=== PATIENT | female | born 1990 | race Caucasian/White ===

== ENCOUNTER 2018-07-05 15:29 | Observation (INO) ==
[2018-07-05 16:48] LABS: Basophils % 0.1 %; Eosinophils # 0.1 K/mcL (0.0-0.6); Eosinophils % 0.6 %; Hematocrit 38.1 % (35.3-44.9); Immature Granulocytes % 0.4 % (0-4); Lymphocytes # 2.7 K/mcL (0.6-4.6); Lymphocytes % 20.2 %; Mean Corpuscular HGB Conc 34.1 g/dL (31.6-35.5); Mean Corpuscular Hemoglobin 30.2 pg (28.0-33.3); Mean Corpuscular Volume 88.6 fL (83.0-100.0); Mean Platelet Volume 10.8 fL (9.4-12.4); Monocytes # 1.1 K/mcL (0.0-1.3); Monocytes % 8.2 %; Neutrophils # 9.5 K/mcL (1.6-8.9); Platelet Count 217 K/mcL (140-400); Red Cell Distribution Width 13.8 % (11.5-14.5); Segmented Neutrophils % 70.5 %
[2018-07-05 16:50] LABS: Bilirubin,Urine Negative (Negative); Blood,Urine Negative (Negative); Clarity,Urine Clear (Clear); Color,Urine Yellow (Yellow); Glucose,Urine (UA) Normal (Normal); Ketones,Urine Negative (Negative); Leukocyte Esterase,Urine Trace (Negative); Nitrite,Urine Negative (Negative); Protein,Urine Negative (Neg-Trace); Specific Gravity,Urine 1.008 (1.010-1.025); Urobilinogen,Urine Normal (Normal)
[2018-07-05 16:53] LABS: Bacteria,Urine Few per hpf (None-Few); Hyaline Casts,Urine None Seen per lpf (None-Few); Squamous Epithelial Cell,Urine Many per lpf (None-Few)
[2018-07-05 16:56] LABS: Amphetamine Screen,Urine Negative ng/mL (Cutoff=1000); Barbiturate Screen,Urine Negative ng/mL (Cutoff=200); Benzodiazepines Screen,Urine Negative ng/mL (Cutoff=200); Cannabinoid Screen,Urine Negative ng/mL (Cutoff = 50); Cocaine Screen,Urine Negative ng/mL (Cutoff= 300); Creatinine,Urine 39 mg/dL; Opiate Screen,Urine Negative ng/mL (Cutoff=300); Phencyclidine Screen,Urine Negative ng/mL (Cutoff=25); Protein/Creatinine Ratio,Urine 0.18 mg/mg (0.00-0.20)
[2018-07-05 17:08] LABS: Alanine Aminotransferase 11 Units/L (7-52); Aspartate Amino Transferase 12 Units/L (13-39); BUN/Creatinine Ratio 15 (6-26); Blood Urea Nitrogen 8 mg/dL (6-20); Lactate Dehydrogenase 121 Units/L (140-271); Uric Acid 3.5 mg/dL (2.3-7.6); eGFR For Non-African Americans > 60 (> 60)
--- NOTE | 2018-07-10 15:05 | Event Note ---
Date of Encounter: 07/06/18 Time of Encounter: 01:00 Angie is a 28-year-old female who presented to labor and delivery with elevated blood pressures. Patient denied headache visual changes or epigastric pain. Patient states at home blood pressures were elevated. Labor and delivery blood pressures were monitored for number of hours her blood pressure stable. Creatinine be an ratio normal. Patient feeling well. Category 1 tracing. No contractions noted. Results given. Palpation stable. Patient started on 24 hour urine and was to follow-up in the office. Warning signs of preeclampsia were discussed. I did not see this patient personally. This was a phone discussion.
== END 2018-07-05 17:52 | disposition home or self-care (01) ==
LOC: 1NENULAB
PROVIDERS: ADMIT Obstetrics & Gynecology; ATTEND Obstetrics & Gynecology

== ENCOUNTER 2018-07-19 08:38 | Observation (INO) ==
--- NOTE | 2018-07-19 11:03 | OB/GYN Progress Note ---
Date of Encounter: 07/19/18 Time of Encounter: 11:00 - Assessment and Plan (1) 38 weeks gestation of Status: Acute Irregular contractions on monitor. Discharge home with labor precautions. (2) Decreased movement Status: Acute NST reactive, baseline 135. Discharge home with kick count education. Qualifiers: Fetus number: single or unspecified fetus Trimester: third trimester Qualified Code(s): O36.8130 - Decreased movements, third trimester, not applicable or unspecified Subjective - Subjective Principal diagnosis: Decreased movement Interval history: 28 y/o at 38w6d presented to triage with decreased movement that began around 7am. Denies LOF, VB, or contractions. Antepartum ROS: no loss of fluid, no vaginal bleeding, no contractions Objective - Vital Signs Vital Signs: Intake and Output 07/18/18 07/19/18 07/19/18 23:59 07:59 15:59 Other: Weight 136.4 kg Patient Weight 07/19/18 23:59 Weight 136.4 kg - Exam FHR: category 1 FHR comments: NST reactive, baseline 135bpm Auscultation: bilateral: normal Abdomen: Present: soft, gravid. Absent: tenderness
== END 2018-07-19 10:46 | disposition home or self-care (01) ==
LOC: 1NENULAB
PROVIDERS: ADMIT Registered Nurse; ATTEND Registered Nurse

== ENCOUNTER 2018-07-25 07:48 | Inpatient (IN) ==
[2018-07-25] MEDS ORDERED: Naloxone 0.4 MG/ML INJ IVP PRN (08:00)
[2018-07-25] MEDS ORDERED: *HR* Nalbuphine 10 MG/ML AMPUL IVP PRN (08:00)
[2018-07-25] MEDS ORDERED: Ondansetron 4 MG/2 ML VIAL IVP PRN (08:00)
[2018-07-25] MEDS ORDERED: Famotidine 20 MG/2 ML VIAL IVP PRN (08:00)
[2018-07-25] MEDS ORDERED: Ringers Solution, Lactated 1,000 ML IVC SCH (08:00)
[2018-07-25] MEDS ORDERED: Lidocaine 1% 20 ML MDV ID PRN (08:00)
[2018-07-25] MEDS ORDERED: Metoclopramide 10 MG/2 ML VIAL IVP PRN (08:00)
[2018-07-25] MEDS ORDERED: Oxytocin 20 units/ LR 1000 mL 20 UNIT/1,000 ML BAG IVC SCH (08:15)
[2018-07-25 08:26] LABS: Basophils % 0.1 %; Eosinophils # 0.1 K/mcL (0.0-0.6); Eosinophils % 0.6 %; Hematocrit 37.2 % (35.3-44.9); Hemoglobin 12.5 g/dL (11.5-15.4); Immature Granulocytes % 0.4 % (0-4); Lymphocytes # 2.3 K/mcL (0.6-4.6); Lymphocytes % 20.1 %; Mean Corpuscular HGB Conc 33.6 g/dL (31.6-35.5); Mean Corpuscular Hemoglobin 29.6 pg (28.0-33.3); Mean Corpuscular Volume 87.9 fL (83.0-100.0); Mean Platelet Volume 10.4 fL (9.4-12.4); Monocytes # 0.8 K/mcL (0.0-1.3); Monocytes % 6.9 %; Neutrophils # 8.2 K/mcL (1.6-8.9); Platelet Count 208 K/mcL (140-400); Red Blood Count 4.23 M/mcL (3.82-4.97); Red Cell Distribution Width 14.4 % (11.5-14.5); Segmented Neutrophils % 71.9 %
--- NOTE | 2018-07-25 08:53 | OB/GYN Progress Note ---
Date of Encounter: 07/25/18 Time of Encounter: 08:46 - Assessment and Plan (1) 39 weeks gestation of Current Visit: Yes Status: Acute Subjective - Subjective Principal diagnosis: induction of labor Antepartum ROS: movement normal (Bee induction started with 60 mL Bee) Objective - Vital Signs Vital Signs: Intake and Output 07/24/18 07/25/18 07/25/18 23:59 07:59 15:59 Other: Weight 2.523 kg Patient Weight 07/25/18 23:59 Weight 2.523 kg - Exam FHR: category 1 Abdomen: Present: normal appearance, soft, gravid Uterus: Present: normal Cervical dilation: 2 Cervix effacement: 50 station: -2 - Labs Labs: Abnormal lab results WBC 11.5 K/mcL (4.3-11.1) H 07/25/18 08:10
[2018-07-25 09:13] LABS: Amphetamine Screen,Urine Negative ng/mL (Cutoff=1000); Barbiturate Screen,Urine Negative ng/mL (Cutoff=200); Benzodiazepines Screen,Urine Negative ng/mL (Cutoff=200); Cannabinoid Screen,Urine Negative ng/mL (Cutoff = 50); Cocaine Screen,Urine Negative ng/mL (Cutoff= 300); Opiate Screen,Urine Negative ng/mL (Cutoff=300); Phencyclidine Screen,Urine Negative ng/mL (Cutoff=25)
--- NOTE | 2018-07-25 09:50 | OB/GYN History & Physical ---
Date of Encounter: 07/25/18 Time of Encounter: 08:10 Assessment and Plan (1) 39 weeks gestation of Current visit: Yes Status: Acute (2) Elective induction of labor planned Current visit: Yes Status: Acute History of Present Illness Chief complaint: induction HPI: Ms. Noble is a 28 year old female 1 who presents for induction of labor at 39 weeks and 2 days. Patient has a history of elevated blood pressures. They have been monitored throughout the . She has had multiple 24-hour urines drawn. She has allergies to penicillin. Current medications include vitamins. Socially she denies tobacco, alcohol, illicit drug use. She has no chronic medical conditions. Surgical history is negative. She has no history of abnormal Pap smears, STDs or pelvic infections. Socially she denies tobacco, alcohol, illicit drug use. Family history patient is adopted. Past Med Surg Social Fam HX - Past Medical History Medical history: migraine Additional medical history: pcos Psychiatric history: anxiety, depression - Past Surgical History Surgical History: no surgical history Additional surgical history: wisdom teeth removal - Social History Smoking Status: Never smoker Smokeless Tobacco Status: No Alcohol use: none Drug use: none - Family History Mother Adopted: Yes Living Status: Still Living Hx Family Cardiac Disorders: Yes (htn) Hx Family Respiratory Disorders: No Hx Family Cancer: Yes (thyroid cancer) Hx Family GI Disorders: No Hx Family Endocrine Disorder: No Hx Family Neuromuscular Disorders: No Hx Family Neurologic Disorders: No Hx Family HEENT Disorders: No Hx Family Autoimmune Disorders: No Obstetrical History - Pregnancies : 1 Medications and Allergies Vit Calc,Iron,Folic [ Vitamins] 1 tab PO DAILY 07/19/18 [ History] 3 Allergy/AdvReac Type Severity Reaction Status Date / Time Penicillins Allergy Rash Verified 07/19/18 08:55 Review of System OB All systems PM: reviewed and no additional remarkable complaints except as stated Exam - Constitutional Constitutional: well developed, well nourished, no acute distress, average body habitus - HEENT HEENT: PERRL - Neck Neck exam: full ROM - Lungs Respiratory exam: CTAB - Cardiovascular Cardiovascular exam: RRR - Abdomen Abdomen: Present: bowel sounds normal, gravid, non tender - Extremities Extremities exam: full ROM, normal capillary refill, warm - Vagina Vagina: Present: normal moisture - Cervix Dilation: 2 Effacement: 50 Station: -2 - Uterus Uterus exam: Present: normal size, normal contour Results Result Diagrams: 07/25/18 08:10 Abnormal lab results WBC 11.5 K/mcL (4.3-11.1) H 07/25/18 08:10 All other labs normal. - VTE Reasons for not Prescribing Prophylaxis: Treatment not Indicated - Low risk for VTE
[2018-07-25] MEDS ORDERED: *HR* FentaNYL (PF) 100 MCG/2 ML VIAL EP ONE (14:50)
[2018-07-25] MEDS ORDERED: Bupivacaine-MPF 0.25% 10 ML VIAL EP ONE (14:50)
[2018-07-25] MEDS ORDERED: Bupivacaine-MPF 0.25% 10 ML VIAL ONE ×3 (14:59→22:14)
[2018-07-25] MEDS ORDERED: *HR* FentaNYL (PF) 100 MCG/2 ML VIAL ONE ×2 (14:59→22:13)
[2018-07-25] MEDS ORDERED: Lidocaine -MPF 2% 5 ML VIAL ONE (14:59)
[2018-07-25] MEDS ORDERED: Epidural Premix (fent/bupiv) 110 ML EP SCH (15:00)
[2018-07-25] MEDS ORDERED: Lidocaine -MPF 1% 5 ML AMPUL ONE (16:07)
--- NOTE | 2018-07-25 16:12 | Anesthesia Evaluation PreOp ---
Date of Encounter: 07/25/18 Time of Encounter: 15:02 - Past History Planned Operation: labor epidural Cardiac History: HTN (diagnosed last two weeks of .) Pulmonary History: Denies Any Significant HX ATTRACTIONS ASSOCIATE History: Denies Any Significant HX, Other (anxiety/depression) Other Medical History: Other (morbid obesity BMI 45.) Anesthesia History: No Prior Anesthetic Complications (wisdom teeth extacted, no problems with sedation. Never had GA. Unsure of family history, was adopted.) : Yes Alcohol Use: none Drug use: none Medications and Allergies Vit Calc,Iron,Folic [ Vitamins] 1 tab PO DAILY 07/19/18 [ History] 3 Allergy/AdvReac Type Severity Reaction Status Date / Time Penicillins Allergy Rash Verified 07/19/18 08:55 - Meds/Allergy Pre-op Review Medications Reviewed: Yes Allergies Reviewed: Yes Beta Blockers on Current Med List: No Anesthesia Results - Labs 07/25/18 08:10 Anesthesia Exam 137/79, 92, 18. FHTs 140s. Height: 5'9" Weight: 304# NPO (# of Hours): >8 Pain Scale: 6 Pain Scale Used: Numeric (1 - 10) - HEENT Pupil (Motor): Pupils equal, EOMI Mallampati: III Teeth: Normal Oral Opening: Greater than 3 - ATTRACTIONS ASSOCIATE LOC: Oriented ATTRACTIONS ASSOCIATE Motor: Normal RUE, Normal LUE, Normal RLE, Normal LLE, Normal Face ATTRACTIONS ASSOCIATE Sensory: Normal: RUE, LUE, RLE, LLE, Face - Cardiac Rhythm: Regular - Pulmonary Breath Sounds: bilateral Clear, bilateral Rales, bilateral Rhonchi Respiratory Effort: Symmetrical Anesthesia Assess/Plan ASA Score: 3 Modified Nichole Scale for Level of Consciousness: Cooperative, oriented, and tranquil Anesthetic Plan: Regional Monitoring Plan: Standard Monitors
--- NOTE | 2018-07-25 16:20 | Anesthesia Procedures ---
Date of Encounter: 07/25/18 Time of Encounter: 15:10 Procedures: Anesthesia - Epidural/Spinal Patient ID/Chart reviewed: Yes Patient examined: Yes OB Eval: Gestational age: 39 OB Eval: : 1 OB Eval: Hx Para: 0 OB Eval: Dilated at (cm): 5 OB Eval: Contractions: Non-stressed pattern Consent Obtained: Yes Supplemental Oxygen: None/Room Air Site Prep: Aseptic Technique, Sterile prep and drape, Povidone-Iodine 1% Patient position: upright Local Anesthetic: Lidocaine 1% Amount of Local Anesthetic used: 6 Touhy Needle Gauge: 19 Touhy Needle Depth (cm): 8 Catheter Depth at Skin (cm): 20 Test Dose (1.5% Lido + Epi): Volume given (mls): 3 Test Dose Result: Negative Loading Dose: 0.25% Marcaine (mls): 8 Loading Dose: Fentanyl (mcg): 100 Loading Dose Administered: Thru Catheter Infusion Med: 0.125% Bupivacaine w/ 2 mcg/ml Fentanyl Infusion Rate (mls/hr): [address]: Tegaderm, Tape Interspace Used: L3-L4 Loss of Resistance (WESLY): Yes Blood: No CSF: No Paresthesia: No Procedure: Had some difficulty placing epidural, encountered bone at L2-3, L3-4, and L4-5. Was able to pass into epidural space with loss of resistence detected at L3-4. Proceeded with procedure, placed on pump at 16ml per hour. Patient only stated a shortening of contractions with intensity of pain the same. After 15 minutes and no improvement, gave patient the option of replacing the epidural. She agreed to do so. Called dr. garcia to the unit at 1605. At 1615 dr. garcia in room attempting placement. Vitals + FHT's: 3 Vital Signs Time 1510 1538 1540 1545 1550 BP 137/79 168/87 143/69 147/78 151/80 Pulse 92 82 79 80 82 FHTs 140 140 140 140 140
--- NOTE | 2018-07-26 06:24 | OB/GYN Procedure Note ---
Delivery - Delivery Date: 07/26/18 Provider: Quinton Spivey Intrapartum events: none Delivery induction: oxytocin, sloan Delivery augmentation: rupture of membranes, pitocin Delivery monitor: external FHT, external uterine, internal FHT, internal uterine Anesthesia: epidural Quantitated Blood Loss: 200 - Infant (s) A Infant Delivery Date: 07/26/18 Delivery Time: 06:02 Presentation: vertex Position: OA Route of delivery: Gender: Female Viability: Viable Pounds: 8 Ounces: 4 Weight Gram: 3.74 kg at 1 minute: 8 at 5 mins: 9 Shoulder Dystocia: not encountered Specimens collected: cord blood Placenta: spontaneous - Repair Episiotomy: none Laceration Description: Vaginal - Complications Delivery complications: none - Disposition Mom disposition: stable in LDR [place] disposition: stable in LDR - Comments Comments: Patient progressed to complete and pushing and had a spontaneous vaginal delivery of a female over an intact perineum. Infant was on the agents perineum easily. The rest of the was then delivered with 1 push. cried immediately upon delivery. Cord was clamped cut after 60 seconds. The was then passed to nursing in attendance. Cord blood was obtained. The placenta was then delivered spontaneously and intact. There are no cervical periurethral or perineal lacerations noted. There was a very small second-degree vaginal laceration which is repaired with 3-0 Vicryl suture in usual fashion. Patient delivered a female infant weight was 8 lbs. 4 oz. with Apgars 81 minute 9 at 5 minutes. Estimated blood loss 200 mL.
[2018-07-26] MEDS ORDERED: Measles/Mumps/Rubella Vacc 0.5 ML VIAL SQ PRN (09:04)
[2018-07-26] MEDS ORDERED: Oxytocin 20 units/ LR 1000 mL 20 UNIT/1,000 ML BAG IVC SCH (09:04)
[2018-07-26] MEDS ORDERED: Prenatal Vit/FA 1 EACH TABLET PO SCH (09:04)
[2018-07-26] MEDS ORDERED: Rho Immune Globulin 1,500 UNIT SYRINGE IM PRN (09:04)
[2018-07-26] MEDS ORDERED: Acetaminophen 325 MG TABLET PO PRN (09:04)
[2018-07-26] MEDS: Ibuprofen 600 MG TABLET PO PRN ×2 (09:56→18:45)
[2018-07-27] MEDS: Ibuprofen 600 MG TABLET PO PRN (04:25)
[2018-07-27 06:20] LABS: Basophils # 0.1 K/mcL (0.0-0.2); Basophils % 0.3 %; Eosinophils # 0.2 K/mcL (0.0-0.6); Eosinophils % 0.9 %; Hematocrit 34.9 % (35.3-44.9); Hemoglobin 11.6 g/dL (11.5-15.4); Immature Granulocytes % 0.5 % (0-4); Lymphocytes # 3.9 K/mcL (0.6-4.6); Lymphocytes % 19.9 %; Mean Corpuscular HGB Conc 33.2 g/dL (31.6-35.5); Mean Corpuscular Hemoglobin 29.7 pg (28.0-33.3); Mean Corpuscular Volume 89.5 fL (83.0-100.0); Mean Platelet Volume 10.7 fL (9.4-12.4); Monocytes # 1.5 K/mcL (0.0-1.3); Monocytes % 7.7 %; Neutrophils # 13.8 K/mcL (1.6-8.9); Platelet Count 187 K/mcL (140-400); Red Cell Distribution Width 14.6 % (11.5-14.5); Segmented Neutrophils % 70.7 %
[2018-07-27 08:07] VITALS: BP 104/66
--- NOTE | 2018-07-27 08:57 | Discharge Summary ---
Date of Encounter: 07/27/18 Time of Encounter: 09:04 - Discharge Diagnosis (1) Status post vaginal delivery Priority: Primary Status: Acute Comments: Patient eating and drinking well. Normal flatus, no BM yet. Pain well controlled with tylenol and ibuprofen. Patient is Rh negative and baby is Rh positive, RhoGAM given yesterday. Patient states her mood is good and feels ready for discharge. Breast-feeding well and has a breast pump at home. Bleeding is light and improving. Patient is stable for discharge. - Discharge Medications Prescriptions: Acetaminophen [Tylenol] 650 mg PO Q6HR PRN 7 Days #30 tablet PRN Reason: Mild Pain Ibuprofen [Motrin] 600 mg PO Q6HR PRN 7 Days #28 tablet PRN Reason: Pain Docusate [Colace] 100 mg PO BID 30 Days #60 capsule Home Medications: Vit Calc,Iron,Folic [ Vitamins] 1 tab PO DAILY 07/19/18 [ History] Acetaminophen [Tylenol] 650 mg PO Q6HR PRN 7 Days #30 tablet 07/27/18 [Rx] Docusate [Colace] 100 mg PO BID 30 Days #60 capsule 07/27/18 [Rx] Ibuprofen [Motrin] 600 mg PO Q6HR PRN 7 Days #28 tablet 07/27/18 [Rx] Measles/Mumps/Rubella Vacc [MMR II Vaccine with Diluent] 0.5 ml SQ AD PRN vial 07/27/18 [Rx] Vit/FA 1 each PO DAILY tablet 07/27/18 [Rx] Rho Immune Globulin [HyperRHO S/D] 1,500 unit IM AD PRN syringe 07/27/18 [Rx] Allergies/Adverse Reactions: 3 Allergy/AdvReac Type Severity Reaction Status Date / Time Penicillins Allergy Rash Verified 07/19/18 08:55 Data Procedures and tests throughout hospitalization: Laboratory Tests 07/25/18 07/25/18 07/26/18 08:10 08:45 06:55 WBC 11.5 H RBC 4.23 Hgb 12.5 Hct 37.2 MCV 87.9 MCH 29.6 MCHC 33.6 RDW 14.4 Plt Count 208 MPV 10.4 Immature Gran % 0.4 Seg Neutrophils % 71.9 Lymphocytes % 20.1 Monocytes % 6.9 Eosinophils % 0.6 Basophils % 0.1 Neutrophils # 8.2 Lymphocytes # 2.3 Monocytes # 0.8 Eosinophils # 0.1 Basophils # 0.0 Urine Opiates Screen Negative Ur Barbiturates Screen Negative Ur Phencyclidine Scrn Negative Ur Amphetamines Screen Negative U Benzodiazepines Scrn Negative Urine Cocaine Screen Negative U Marijuana (THC) Screen Negative Ur Drug Screen Interp See Below Screen NEGATIVE Baby's Blood Type O RH POSITIVE Mother's Blood Type A RH NEGATIVE Rhogam Indicated YES Rhogam Req for Mother 1 07/27/18 06:08 WBC 19.5 H D RBC 3.90 Hgb 11.6 Hct 34.9 L MCV 89.5 MCH 29.7 MCHC 33.2 RDW 14.6 H Plt Count 187 MPV 10.7 Immature Gran % 0.5 Seg Neutrophils % 70.7 Lymphocytes % 19.9 Monocytes % 7.7 Eosinophils % 0.9 Basophils % 0.3 Neutrophils # 13.8 H Lymphocytes # 3.9 Monocytes # 1.5 H Eosinophils # 0.2 Basophils # 0.1 Urine Opiates Screen Ur Barbiturates Screen Ur Phencyclidine Scrn Ur Amphetamines Screen U Benzodiazepines Scrn Urine Cocaine Screen U Marijuana (THC) Screen Ur Drug Screen Interp Screen Baby's Blood Type Mother's Blood Type Rhogam Indicated Rhogam Req for Mother Labs on day of discharge: Labs from last 24 hours 07/27/18 07/26/18 06:08 06:55 WBC 19.5 H D RBC 3.90 Hgb 11.6 Hct 34.9 L MCV 89.5 MCH 29.7 MCHC 33.2 RDW 14.6 H Plt Count 187 MPV 10.7 Immature Gran % 0.5 Seg Neutrophils % 70.7 Lymphocytes % 19.9 Monocytes % 7.7 Eosinophils % 0.9 Basophils % 0.3 Neutrophils # 13.8 H Lymphocytes # 3.9 Monocytes # 1.5 H Eosinophils # 0.2 Basophils # 0.1 Screen NEGATIVE Baby's Blood Type O RH POSITIVE Mother's Blood Type A RH NEGATIVE Rhogam Indicated YES Rhogam Req for Mother 1 Date of admission: 07/25/18 07:48 Primary care physician: Heather Faria MD Consults: 07/26/18 09:04 Consult to Incident Coordinator [CONS] Routine Comment: Vaginal delivery, consult needed Discharging clinician: Milena Aragon Anticipated date of discharge: 07/27/18 - Patient Status Disposition: Home, Self-Care Condition: Good Functional capacity at discharge: independent ambulation Overall status at discharge: patient is progressing back to baseline - Discharge Instructions Follow Up With: Heather Faria MD [Primary Care Provider] - Quinton Spivey MD [Partnered Physician] - Additional Instructions: Follow-up with Dr. Spivey in 4 weeks' time. Continue with ibuprofen 600 mg every 4-6 hours as needed for pain. Please call the office should you develop any significant vaginal bleeding, feelings of hopelessness or worthlessness, thoughts of harming yourself or others, or any other symptoms worrisome to you. No heavy lifting anything other than the baby. - Diet and Activity Activity: increase activity as tolerated Diet: regular diet Hospital Course SCALE TECHNICIAN Hospital course: Delivery - Delivery Date: 07/26/18 Provider: Quinton Spivey Intrapartum events: none Delivery induction: oxytocin, sloan Delivery augmentation: rupture of membranes, pitocin Delivery monitor: external FHT, external uterine, internal FHT, internal uterine Anesthesia: epidural Quantitated Blood Loss: 200 - Infant (s) A Infant Delivery Date: 07/26/18 Delivery Time: 06:02 Presentation: vertex Position: OA Route of delivery: Gender: Female Viability: Viable Pounds: 8 Ounces: 4 Weight Gram: 3.74 kg at 1 minute: 8 at 5 mins: 9 Shoulder Dystocia: not encountered Specimens collected: cord blood Placenta: spontaneous - Repair Episiotomy: none Laceration Description: Vaginal - Complications Delivery complications: none - Disposition Mom disposition: stable in disposition: stable in - Comments Comments: Patient is a who progressed to complete and pushing and had a spontaneous vaginal delivery of a female over an intact perineum. Infant was on the agents perineum easily. The rest of the infant was then delivered with 1 push. cried immediately upon delivery. Cord was clamped cut after 60 seconds. The was then passed to nursing in attendance. Cord blood was obtained. The placenta was then delivered spontaneously and intact. There are no cervical periurethral or perineal lacerations noted. There was a very small second-degree vaginal laceration which is repaired with 3-0 Vicryl suture in usual fashion. Patient delivered a female infant weight was 8 lbs. 4 oz. with Apgars 81 minute 9 at 5 minutes. Estimated blood loss 200 mL. Time Attestation: Total time spent providing and/or coordinating discharge services: Time Spent: Less than 30 minutes Exam - Constitutional Vitals: Temp Pulse Resp BP Pulse Ox 97.8 F 85 14 104/66 98 07/27/18 07:45 07/27/18 07:45 07/27/18 07:45 07/27/18 07:45 07/27/18 07:45 General appearance IM: A&O X 3, pleasant, no acute distress - Respiratory Respiratory exam: Present: CTAB - Cardiovascular Cardiovascular exam IM: Present: RRR, +S1, +S2 - GI/Abdominal GI/Abdominal exam IM: normal bowel sounds - Uterine Tone: Firm Uterus Position: At Umbilicus, Midline - Extremities Exam Extremities exam IM: Absent: pedal edema - Neurological Exam Neurological exam: alert, oriented X3 - Psychiatric Additional comments: States mood is "really good" - VTE Reasons for not Prescribing Prophylaxis: Treatment not Indicated - Low risk for VTE - Attending Attestation I examined this patient and my medical decision-making was reviewed with the Resident Physician. I agree with the documented findings, disposition and treatment plan as described except to the extent set forth below. Kayla Marin CNM
== END 2018-07-27 10:58 | disposition home or self-care (01) | DRG 806 ==
LOC: 1NENULAB 07:48 → 1NENUOBS 07-26 09:05
PROVIDERS: ADMIT Obstetrics & Gynecology; ATTEND Obstetrics & Gynecology

== ENCOUNTER 2020-04-20 05:54 | Inpatient (IN) ==
[2020-04-20] MEDS ORDERED: Famotidine 20 MG/2 ML VIAL IVP PRN (06:06)
[2020-04-20] MEDS ORDERED: *HR* FentaNYL (PF) 100 MCG/2 ML VIAL IVP PRN (06:06)
[2020-04-20] MEDS ORDERED: Lidocaine 1% 20 ML MDV ID PRN (06:06)
[2020-04-20] MEDS ORDERED: Azithromycin 500 MG in 0.9 % Sodium Chloride 250 ML IVPB ONE (06:06)
[2020-04-20] MEDS ORDERED: Naloxone 0.4 MG/ML INJ IVP PRN (06:06)
[2020-04-20] MEDS ORDERED: Metoclopramide 10 MG/2 ML VIAL IVP PRN (06:06)
[2020-04-20] MEDS ORDERED: miSOPROStoL 25 MCG TABLET PO PRN (06:09)
[2020-04-20] MEDS ORDERED: Ringers Solution, Lactated 1,000 ML IVC SCH (06:15)
[2020-04-20 06:50] LABS: Basophils % 0.2 %; Eosinophils # 0.1 K/mcL (0.0-0.6); Eosinophils % 0.6 %; Hematocrit 38.1 % (35.3-44.9); Hemoglobin 12.6 g/dL (11.5-15.4); Immature Granulocytes % 0.6 % (0-4); Lymphocytes # 3.3 K/mcL (0.6-4.6); Lymphocytes % 26.9 %; Mean Corpuscular HGB Conc 33.1 g/dL (31.6-35.5); Mean Corpuscular Hemoglobin 30.1 pg (28.0-33.3); Mean Corpuscular Volume 90.9 fL (83.0-100.0); Mean Platelet Volume 10.8 fL (9.4-12.4); Monocytes # 0.8 K/mcL (0.0-1.3); Monocytes % 6.5 %; Neutrophils # 8.1 K/mcL (1.6-8.9); Platelet Count 203 K/mcL (140-400); Red Blood Count 4.19 M/mcL (3.82-4.97); Segmented Neutrophils % 65.2 %; White Blood Count 12.4 K/mcL (4.3-11.1)
[2020-04-20] MEDS ORDERED: Oxytocin 20 units/ LR 1000 mL 20 UNIT/1,000 ML BAG IVC SCH ×2 (08:00→21:23)
[2020-04-20 08:22] LABS: Amphetamine Screen,Urine Negative ng/mL (Cutoff=1000); Barbiturate Screen,Urine Negative ng/mL (Cutoff=200); Benzodiazepines Screen,Urine Negative ng/mL (Cutoff=200); Cannabinoid Screen,Urine Negative ng/mL (Cutoff = 50); Cocaine Screen,Urine Negative ng/mL (Cutoff= 300); Opiate Screen,Urine Negative ng/mL (Cutoff=300); Phencyclidine Screen,Urine Negative ng/mL (Cutoff=25)
[2020-04-20 09:41] LABS: Creatinine,Urine 153 mg/dL; Protein/Creatinine Ratio,Urine 0.18 mg/mg (0.00-0.20)
[2020-04-20 09:48] LABS: Alanine Aminotransferase 12 Units/L (7-52); Aspartate Amino Transferase 12 Units/L (13-39); BUN/Creatinine Ratio 17 (6-26); Blood Urea Nitrogen 9 mg/dL (6-20); Lactate Dehydrogenase 134 Units/L (140-271); Uric Acid 4.2 mg/dL (2.3-7.6); eGFR For African Americans > 60 (> 60); eGFR For Non-African Americans > 60 (> 60)
[2020-04-20] MEDS ORDERED: Bupivacaine-MPF 0.25% 10 ML VIAL EP ONE (10:16)
[2020-04-20] MEDS ORDERED: *HR* FentaNYL (PF) 100 MCG/2 ML VIAL EP ONE (10:16)
[2020-04-20] MEDS ORDERED: EPHEDrine 50 MG/ML VIAL IVP PRN (10:16)
[2020-04-20] MEDS ORDERED: Epidural Premix (fent/bupiv) 110 ML EP SCH (10:30)
[2020-04-20] MEDS ORDERED: Acetaminophen 325 MG TABLET PO ONE ×2 (10:53→15:25)
[2020-04-20] MEDS ORDERED: Ondansetron 4 MG/2 ML VIAL IVP PRN ×2 (16:18→21:57)
[2020-04-20] MEDS ORDERED: Acetaminophen 325 MG TABLET PO PRN (21:23)
[2020-04-20] MEDS ORDERED: Rho Immune Globulin 1,500 UNIT SYRINGE IM PRN (21:23)
[2020-04-20] MEDS ORDERED: Lanolin 7 G OINT...G. TP PRN (21:23)
[2020-04-20] MEDS ORDERED: Benzocaine/Menthol 56 GM AEROSOL SPRAY TP PRN (21:23)
[2020-04-20] MEDS ORDERED: Measles/Mumps/Rubella Vacc 0.5 ML VIAL SQ PRN (21:23)
[2020-04-20] MEDS: Ibuprofen 600 MG TABLET PO PRN (22:03)
[2020-04-21] MEDS: Ibuprofen 600 MG TABLET PO PRN ×2 (05:31→12:52)
[2020-04-21 06:37] LABS: Basophils % 0.2 %; Eosinophils # 0.1 K/mcL (0.0-0.6); Eosinophils % 0.3 %; Hematocrit 37.4 % (35.3-44.9); Hemoglobin 12.6 g/dL (11.5-15.4); Immature Granulocytes % 0.5 % (0-4); Lymphocytes # 3.2 K/mcL (0.6-4.6); Lymphocytes % 18.6 %; Mean Corpuscular HGB Conc 33.7 g/dL (31.6-35.5); Mean Corpuscular Hemoglobin 30.4 pg (28.0-33.3); Mean Corpuscular Volume 90.3 fL (83.0-100.0); Mean Platelet Volume 10.7 fL (9.4-12.4); Monocytes # 1.2 K/mcL (0.0-1.3); Monocytes % 6.7 %; Neutrophils # 12.8 K/mcL (1.6-8.9); Platelet Count 192 K/mcL (140-400); Red Blood Count 4.14 M/mcL (3.82-4.97); Red Cell Distribution Width 13.9 % (11.5-14.5); Segmented Neutrophils % 73.7 %; White Blood Count 17.3 K/mcL (4.3-11.1)
[2020-04-21 07:50] VITALS: BP 107/64
[2020-04-21] MEDS ORDERED: Prenatal Vit/FA 1 EACH TABLET PO SCH (09:00)
== END 2020-04-21 19:45 | disposition home or self-care (01) | DRG 807 ==
LOC: 1NENULAB 05:54 → 1NENUOBS 21:23
PROVIDERS: ADMIT Obstetrics & Gynecology; ATTEND Obstetrics & Gynecology